=== PATIENT | female | born 1970 | race Caucasian/White ===

== ENCOUNTER 2021-10-07 13:02 | Outpatient (CLI) | payer MEDICARE, MEDICAID, SELFPAY ==
--- NOTE | ~2021-10-07 | XR_ITS ---
XR hand BI arthritis min 3V DATE: 10/07/2021 13:41 INDICATION: Rheumatoid arthritis without rheumatoid factor TECHNIQUE: 4 views of each hand COMPARISON: None FINDINGS: No fracture, dislocation, periosteal reaction or bone destruction is evident. No erosive changes or chondrocalcinosis. IMPRESSION: No radiographic evidence of erosions Reviewed, dictated and finalized at location A. [employer]ER
[2021-10-07 13:34] LABS: Hematocrit 40.5 % (37.0-47.0); Mean Corpuscular HGB Conc 34.6 g/dl (32-36); Mean Corpuscular Volume 95.5 fl (80-100); Mean Platelet Volume 11.4 fl (7.4-10.4); Platelet Count Result 223 k/mm3 (150-375); Red Blood Count 4.24 M/mm3 (4.2-5.4); Red Cell Distribution Width 13.7 % (11.5-14.5); White Blood Count 11.6 K/mm3 (4.5-10.0)
[2021-10-07 14:26] LABS: Erythrocyte Sedimentation Rate 19 mm/hr (0-20)
[2021-10-07 15:10] LABS: Alanine Aminotransferase 42 U/L (4-35); Albumin Level 4.6 g/dL (3.5-5.1); Alkaline Phosphatase 111 U/L (38-126); Anion Gap 4 mmol/L (8-16); Aspartate Amino Transferase 41 U/L (14-36); Bilirubin,Total 0.6 mg/dL (0.2-1.3); Blood Urea Nitrogen 8 mg/dL (7-17); CRP 1.5 mg/dL (<1.0); Calcium 10.1 mg/dL (8.4-10.2); Carbon Dioxide 30 mmol/L (22-30); Chloride 107 mmol/L (98-107); Estimated Glomerular Filt Rate 58; Glucose 100 mg/dL (65-110); Potassium 4.4 mmol/L (3.4-5.0); Sodium 141 mmol/L (137-145)
== END 2021-10-07 13:03 | disposition home or self-care (01) ==
LOC: ANHLAB 13:10
PROVIDERS: PCP Family Medicine; Visit Provider Internal Medicine
DX: M06.09 Rheumatoid arthritis without rheumatoid factor, multiple sites (principal); M19.90 Unspecified osteoarthritis, unspecified site; Z71.89 Other specified counseling; Z79.899 Other long term (current) drug therapy
CPT/HCPCS: 36415; 73130; 80053; 85027; 85652; 86140

== ENCOUNTER 2021-10-14 09:53 | Outpatient (CLI) | payer MEDICARE, MEDICAID, SELFPAY ==
--- NOTE | ~2021-10-14 | MR_ITS ---
EXAMINATION: MR hand LT wo/w con, MR hand RT wo/w con DATE: 10/14/2021 12:33 INDICATION: Rheumatoid arthritis with rheumatoid factor TECHNIQUE: 1. Magnetic resonance imaging (MRI) of the left hand was performed without and with 17 mL Multihance intravenous contrast to include the metacarpals and digits but which excludes portions of the proxima l carpal row. Sequences included axial, sagittal and coronal T1-weighted FSE and T2-weighted FS FSE, axial T1-weighted FS FSE and postcontrast axial and coronal T1-weighted FS FSE. 2. MRI of the right hand was performed without and with 17 mL Multihance intravenous contrast to incl ude the metacarpals and digits but which excludes portions of the proximal carpal row. The identical contrast bolus was utilized for the MRI of both the left and right hands. Sequences included axial, s agittal and coronal T1-weighted FSE and T2-weighted FS FSE, axial T1-weighted FS FSE and postcontrast axial and coronal T1-weighted FS FSE. COMPARISON: Bilateral hand radiographs dated 09/29/2021 FINDINGS: Left hand: Bone alignment is normal throughout the left hand. Low signal intensity bone island at the trapezium. No fracture, reactive edema or pathologic marrow replacing process. Joint spaces appear relatively p reserved throughout the joints of the left hand. There is a tiny T2 hyperintense and enhancing periar ticular erosions at the radial side of the head of the third metacarpal. The visualized portion of th e flexor and extensor tendons are normal with no tenosynovitis. The collateral ligament complex at th e metacarpophalangeal and interphalangeal joints appear normal. No joint effusions or other abnormal fluid collections. Right hand: Bone alignment is normal throughout the right hand. No fracture, reactive edema or pathologic marrow replacing process. Joint spaces appear relatively preserved throughout the joints of the right hand. Symmetric finding of a tiny T2 hyperintense and enhancing erosions at the radial side of the head of the third metacarpal. The visualized portion of the flexor and extensor tendons are normal with no te nosynovitis. The collateral ligament complex at the metacarpophalangeal and interphalangeal joints ap pear normal. No joint effusions or other abnormal fluid collections. IMPRESSION: 1. Relatively symmetric tiny enhancing periarticular erosions at the radial sides of the heads of the bilateral third metacarpals with location and symmetric distribution consistent with reported histor y of rheumatoid arthritis. Reviewed, dictated and finalized at location A. ROLLER IMPRESSION: 1. Relatively symmetric tiny enhancing periarticular erosions at the radial erich es of the heads of the bilateral third metacarpals with location and symmetric distribution consistent with reported history of rheumatoid arthritis.
[2021-10-14 10:41] LABS: Estimated Glomerular Filt Rate > 60
== END 2021-10-14 09:54 | disposition home or self-care (01) ==
PROVIDERS: PCP Family Medicine; Visit Provider Internal Medicine
DX: M05.9 Rheumatoid arthritis with rheumatoid factor, unspecified (principal); Z51.81 Encounter for therapeutic drug level monitoring; Z79.899 Other long term (current) drug therapy
CPT/HCPCS: 73220; A9577

== ENCOUNTER 2022-04-21 15:00 | Outpatient (CLI) | payer MEDICARE, MEDICAID, SELFPAY ==
[2022-04-21 15:57] LABS: Basophils Absolute Auto 0.1 K/mm3 (0.0-0.1); Basophils Percent Auto 0.5 % (0.2-1.2); Eosinophils Absolute Auto 0.2 K/mm3 (0-0.3); Eosinophils Percent Auto 1.2 % (0-4.4); Hematocrit 43.3 % (37.0-47.0); Hemoglobin 14.8 g/dL (12.0-15.0); Immature Granulocyte Absolute 0.05 K/mm3 (0.00-0.031); Immature Granulocyte Percent A 0.4 % (0-0.5); Lymphocytes Absolute Auto 4.04 K/mm3 (0.9-3.2); Lymphocytes Percent Auto 32.1 % (18.3-44.2); Mean Corpuscular HGB Conc 34.2 g/dl (32-36); Mean Corpuscular Hemoglobin 32.3 pg (26-34); Mean Corpuscular Volume 94.5 fl (80-100); Mean Platelet Volume 11.2 fl (7.4-10.4); Monocytes Absolute Auto 0.7 K/mm3 (0.1-0.6); Monocytes Percent Auto 5.6 % (2.6-8.5); Neutrophils Absolute Auto 7.6 K/mm3 (1.3-6.7); Neutrophils Percent Auto 60.2 % (45.5-73.1); Platelet Count Result 244 k/mm3 (150-375); Red Blood Count 4.58 M/mm3 (4.2-5.4); Red Cell Distribution Width 12.7 % (11.5-14.5); White Blood Count 12.6 K/mm3 (4.5-10.0)
[2022-04-21 15:59] LABS: Appearance Urine Clear (Clear); Bilirubin Urine Negative (Negative); Blood Urine Negative (Negative); Color Urine Yellow (Yellow); Glucose Urine UA Negative (Negative); Ketones Urine Negative (Negative); Leukocyte Esterase Ur Negative LEU/UL (Negative); Nitrate Urine Negative (Negative); Protein Urine Negative (Negative); Urobilinogen Urine 0.2 mg/dL (<2.0); pH Urine 5.5 (5.0-9.0)
[2022-04-21 16:00] LABS: Add Urine Microscopic? NO
[2022-04-21 16:28] LABS: Erythrocyte Sedimentation Rate 15 mm/hr (0-20)
[2022-04-21 16:36] LABS: Alanine Aminotransferase 37 U/L (6-35); Albumin Level 4.9 g/dL (3.5-5.1); Alkaline Phosphatase 91 U/L (38-126); Anion Gap 10 mmol/L (8-16); Aspartate Amino Transferase 37 U/L (14-36); Bilirubin,Total 0.6 mg/dL (0.2-1.3); Blood Urea Nitrogen 10 mg/dL (7-17); CRP < 0.5 mg/dL (<1.0); Calcium 9.9 mg/dL (8.4-10.2); Carbon Dioxide 29 mmol/L (22-30); Chloride 99 mmol/L (98-107); Estimated Glomerular Filt Rate 52; Glucose 96 mg/dL (65-110); Potassium 4.3 mmol/L (3.4-5.0); Sodium 138 mmol/L (137-145)
== END 2022-04-21 15:01 | disposition home or self-care (01) ==
PROVIDERS: PCP Family Medicine; Visit Provider Internal Medicine
DX: M06.09 Rheumatoid arthritis without rheumatoid factor, multiple sites (principal); M06.9 Rheumatoid arthritis, unspecified; M19.90 Unspecified osteoarthritis, unspecified site
CPT/HCPCS: 36415; 80053; 81003; 85025; 85652; 86140

== ENCOUNTER 2022-09-14 10:06 | Outpatient (CLI) | payer MEDICARE, MEDICAID, SELFPAY ==
[2022-09-14 15:20] LABS: Alanine Aminotransferase 23 U/L (6-35); Alkaline Phosphatase 79 U/L (38-126); Anion Gap 5 mmol/L (8-16); Aspartate Amino Transferase 27 U/L (14-36); Bilirubin,Total 0.4 mg/dL (0.2-1.3); Blood Urea Nitrogen 7 mg/dL (7-17); Calcium 8.8 mg/dL (8.4-10.2); Carbon Dioxide 27 mmol/L (22-30); Chloride 107 mmol/L (98-107); Cholesterol 159 mg/dL (0-200); Estimated Glomerular Filt Rate > 60; Glucose 95 mg/dL (65-110); HDL Direct 32 mg/dL; Potassium 3.7 mmol/L (3.4-5.0); Sodium 139 mmol/L (137-145); Triglycerides 226 mg/dL (<150)
[2022-09-14 15:36] LABS: LDL Cholesterol Direct 76 mg/dL
[2022-09-14 16:43] LABS: Hemoglobin A1C 5.2 % (<5.7)
== END 2022-09-14 10:07 | disposition home or self-care (01) ==
LOC: ANHLAB 10:31
PROVIDERS: PCP Family Medicine
DX: R73.01 Impaired fasting glucose (principal); I10 Essential (primary) hypertension
CPT/HCPCS: 36415; 80053; 80061; 83036

== ENCOUNTER 2022-12-01 12:16 | Outpatient (CLI) | payer MEDICARE, MEDICAID, SELFPAY ==
--- NOTE | ~2022-12-01 | XR_ITS ---
Clinical Indication: Cough PA and lateral views of the chest: Comparison: None Findings: Right-sided Mediport in place. The lungs are clear, without evidence of focal consolidation or pleural effusion. Cardiomediastinal silhouette is within normal limits. Chronic right rib fractu re deformities are noted. Impression: Clear lungs. Right-sided Mediport. Reviewed, dictated and finalized at location . Impression: Clear lungs. Right-sided Mediport.
== END 2022-12-01 12:17 | disposition home or self-care (01) ==
PROVIDERS: PCP Family Medicine; Visit Provider Internal Medicine
DX: R05.8 Other specified cough (principal)
CPT/HCPCS: 71046

== ENCOUNTER 2022-12-15 13:01 | Outpatient (CLI) | payer MEDICARE, MEDICAID, SELFPAY ==
[2022-12-15 14:48] LABS: Alanine Aminotransferase 29 U/L (6-35); Albumin Level 4.5 g/dL (3.5-5.1); Alkaline Phosphatase 98 U/L (38-126); Anion Gap 6 mmol/L (8-16); Aspartate Amino Transferase 30 U/L (14-36); Bilirubin,Total 0.6 mg/dL (0.2-1.3); Blood Urea Nitrogen 6 mg/dL (7-17); Calcium 9.6 mg/dL (8.4-10.2); Carbon Dioxide 29 mmol/L (22-30); Chloride 104 mmol/L (98-107); Cholesterol 141 mg/dL (0-200); Estimated Glomerular Filt Rate > 60; Glucose 96 mg/dL (65-110); HDL Direct 40 mg/dL; Sodium 139 mmol/L (137-145); Triglycerides 200 mg/dL (<150)
[2022-12-15 14:59] LABS: LDL Cholesterol Direct 61 mg/dL
== END 2022-12-15 13:02 | disposition home or self-care (01) ==
LOC: ANHLAB 13:10
PROVIDERS: PCP Family Medicine
DX: R74.8 Abnormal levels of other serum enzymes (principal); R73.01 Impaired fasting glucose
CPT/HCPCS: 36415; 80053; 80061; 83036

== ENCOUNTER 2024-01-10 10:44 | Outpatient (CLI) | payer MEDICARE, MEDICAID, SELFPAY ==
[2024-01-10 11:24] LABS: Basophils Absolute Auto 0.1 K/mm3 (0.0-0.1); Basophils Percent Auto 0.4 % (0.2-1.2); Eosinophils Percent Auto 0.2 % (0-4.4); Hemoglobin 12.9 g/dL (12.0-15.0); Immature Granulocyte Absolute 0.06 K/mm3 (0.00-0.031); Immature Granulocyte Percent A 0.5 % (0-0.5); Lymphocytes Absolute Auto 2.27 K/mm3 (0.9-3.2); Lymphocytes Percent Auto 17.6 % (18.3-44.2); Mean Corpuscular HGB Conc 33.9 g/dl (32-36); Mean Corpuscular Hemoglobin 32.7 pg (26-34); Mean Corpuscular Volume 96.2 fl (80-100); Mean Platelet Volume 11.1 fl (7.4-10.4); Monocytes Absolute Auto 0.7 K/mm3 (0.1-0.6); Monocytes Percent Auto 5.4 % (2.6-8.5); Neutrophils Absolute Auto 9.8 K/mm3 (1.3-6.7); Neutrophils Percent Auto 75.9 % (45.5-73.1); Platelet Count Result 183 k/mm3 (150-375); Red Blood Count 3.95 M/mm3 (4.2-5.4); Red Cell Distribution Width 12.7 % (11.5-14.5); White Blood Count 12.9 K/mm3 (4.5-10.0)
[2024-01-10 17:01] LABS: Alanine Aminotransferase 15 U/L (6-35); Albumin Level 3.9 g/dL (3.5-5.1); Alkaline Phosphatase 121 U/L (38-126); Anion Gap 7 mmol/L (4-12); Aspartate Amino Transferase 29 U/L (14-36); Bilirubin,Total 0.6 mg/dL (0.2-1.3); Blood Urea Nitrogen 8 mg/dL (7-17); Carbon Dioxide 24 mmol/L (22-30); Chloride 107 mmol/L (98-107); Estimated Glomerular Filt Rate > 60; Glucose 92 mg/dL (65-110); Potassium 3.5 mmol/L (3.4-5.0); Sodium 138 mmol/L (137-145)
[2024-01-11 10:03] LABS: Levetiracetam Keppra 86.1 mcg/mL (6.0-46.0)
== END 2024-01-10 10:45 | disposition home or self-care (01) ==
PROVIDERS: PCP Family Medicine; Visit Provider Internal Medicine Hematology & Oncology
DX: G40.019 Localization-related (focal) (partial) idiopathic epilepsy and epileptic syndromes with seizures of localized onset, intractable, without status epilepticus (principal)
CPT/HCPCS: 36415; 80053; 80177; 85025